=== PATIENT | male | born 1995 | race Caucasian/White ===

== ENCOUNTER 2017-01-11 07:39 | Emergency (ER) | payer MEDICAID ==
[~2017-01-11] VITALS: Ht 185.4 cm; Wt 95.5 kg
[2017-01-11] MEDS ORDERED: ACETAMINOPHEN 500 MG TABLET PO ONE (08:15)
[2017-01-11 09:15] VITALS: BP 120/76
== END 2017-01-11 09:28 | disposition home or self-care (01) ==
LOC: EMS 07:41
DX: S90.31XA Contusion of right foot, initial encounter (principal); X50.1XXA Overexertion from prolonged static or awkward postures, initial encounter; Y93.89 Activity, other specified; Y92.89 Other specified places as the place of occurrence of the external cause; Y99.8 Other external cause status
CPT/HCPCS: 99284